=== PATIENT | female | born 1970 | race Caucasian/White ===

== ENCOUNTER → 2023-01-05 | Outpatient (CLI) | payer SELFPAY ==
[~2023-01-05] VITALS: Ht 167 cm; Wt 97.0 kg
[~2023-01-05] MED LIST: ASPI-1238 PO; ATOR20TA66 PO; CATHETER FLUSH 10 ML SYR IVP PRN; CLOP75TA28 PO; ISOS30TA82 PO; LEVO112C4 PO; PANT40TA52 PO; REGADENOSON 0.4 MG/5 ML SYR IV ONE
[2023-01-05 09:32] VITALS: BP 154/88
--- NOTE | 2023-01-05 12:12 | Cardiology Stress Test Report ---
Stress Test Report Date of Procedure/Referring: Date of Procedure: Jan 05, 2023 PCP No,Local Physician Admitting Physician Admitting Physician: Attending Physician: May Mcpherson Pa-C Baseline Heart Rate: 71 Baseline Blood Pressure: Blood Pressure Systolic: 154 Blood Pressure Diastolic: 88 Baseline Vitals Vital Signs Date Time Temp Pulse Resp B/P (MAP) Pulse Ox O2 Delivery O2 Flow Rate FiO2 01/05/23 09:32 71 154/88 (110) Baseline EKG: Baseline EKG: NSR Summary After explaining the procedure to the patient, she signed a consent and then brought to the stress nuclear laboratory. Patient received 0.4 mg Lexiscan for stress test, ECG, heart rate and blood pressure were monitored continuously. Resting and stress dose of radio tracer were injected, imaging was acquired and reviewed in short axis, horizontal long axis and vertical long axis views. TID: 1.03 SSS: 13 SDS: 11 EF: 69 Patient tolerated Lexiscan well Significant breast attenuation affecting the quality of the images, there is a reversible ischemia involving the whole anterior wall and anteroseptum and anterolateral wall Normal left ventricular size, ejection fraction 69% ANTONINO FREIRE MD Jan 05, 2023 12:12
== END ==
LOC: CARD 07:20
PROVIDERS: ATTEND Physician Assistant
DX: R07.9 Chest pain, unspecified (principal); R06.09 Other forms of dyspnea; R00.2 Palpitations; I50.9 Heart failure, unspecified
CPT/HCPCS: 78452; 93017; A9502; C8929; 93306

== ENCOUNTER 2023-01-14 13:00 | Day surgery (SDC) | payer SELFPAY ==
[~2023-01-14] VITALS: Ht 167.6 cm; Wt 97.0 kg
[2023-01-14] VITALS (14 sets, daily range): BP systolic 124–167; BP diastolic 68–101
--- NOTE | 2023-01-14 11:15 | Diagnostic Imaging Report ---
INDICATION: Shortness of breath. FINDINGS: The heart size is normal. The lungs are clear. There is no pleural effusion or pneumothorax. The mediastinum unremarkable. IMPRESSION: No acute cardiopulmonary abnormality. Dictated by: Dictated on workstation # [id number]
[2023-01-14 11:36] LABS: HEMATOCRIT 43 % (35-52); HEMOGLOBIN 14.7 g/dL (11.5-16.0); MEAN CORPUSCULAR HEMOGLOBIN 31 pg (25-34); MEAN CORPUSCULAR HGB CONC 34 g/dL (32-36); MEAN CORPUSCULAR VOLUME 92 fL (80-99); MEAN PLATELET VOLUME 10.2 fL (9.0-12.2); PLATELET COUNT 282 10^3/uL (130-400); WHITE BLOOD COUNT 6.8 10^3/uL (4.3-11.0)
[2023-01-14] MEDS: NS IV 1000 ML 1,000 ML IV SCH ×4 (11:36→23:30)
[2023-01-14 11:45] LABS: ALBUMIN 4.1 GM/DL (3.2-4.5); POTASSIUM 3.6 MMOL/L (3.6-5.0)
[2023-01-14 11:46] LABS: CALCIUM 9.4 MG/DL (8.5-10.1)
[2023-01-14 11:47] LABS: INR 0.9 (0.8-1.4); PROTHROMBIN TIME PATIENT 12.3 SEC (12.2-14.7)
[2023-01-14 11:48] LABS: TOTAL PROTEIN 7.3 GM/DL (6.4-8.2)
[2023-01-14 11:49] LABS: BILIRUBIN,TOTAL 0.5 MG/DL (0.1-1.0)
--- NOTE | 2023-01-14 11:49 | Cardiac Procedure Note-CS/ASA ---
Pre-Procedure Note Pre-Op Procedure Note Date of Available H&P: Jan 06, 2023 Date H&P Reviewed: Jan 14, 2023 Time H&P Reviewed: 11:49 History & Physical: H&P Reviewed, Patient Examed, No changes noted Pre-Operative Diagnosis: CAD Moderate Sedation PreProcedure Time 11:49 ASA Score 3 Airway Lungs Heart ASA score ASA 1: a normal healthy patient ASA 2: a patient with a mild systemic disease (mid diabetes, controlled hypertension, obesity ASA 3: a patient with a severe systemic disease that limits activity (angina, COPD, prior Myocardial infarction) ASA 4: a patient with an incapacitating disease that is a constant threat to life (CHF, renal failure) ASA 5: a moribund patient not expected to survive 24 hrs. (ruptured aneurysm) ASA 6: a declared brain- patient whose organs are being harvested. For emergent operations, add the letter E after the classification Mallampati Classification Grade 3 Sedation Plan Analgesia, Amnesia, Plan communicated to team members, Discussed options with patient/fam, Discussed risks with patient/fam The patient is an appropriate candidate to undergo the planned procedure, sedation, and anesthesia. The patient immediately re-assessed prior to indication. ANTONINO FREIRE MD Jan 14, 2023 11:49
[2023-01-14 11:51] LABS: CREATININE SERUM 0.75 MG/DL (0.60-1.30)
[2023-01-14 12:02] LABS: BACTERIA,URINE TRACE /HPF; BILIRUBIN,URINE NEGATIVE (NEGATIVE); CLARITY,URINE CLEAR; COLOR,URINE YELLOW; GLUCOSE, URINE (UA) NEGATIVE (NEGATIVE); KETONES,URINE NEGATIVE (NEGATIVE); LEUKOCYTE ESTERASE ,URINE NEGATIVE (NEGATIVE); NITRITE,URINE NEGATIVE (NEGATIVE); PH,URINE 5.5 (5-9); PROTEIN,URINE NEGATIVE (NEGATIVE); RBC,URINE 0-2 /HPF; SQUAMOUS EPITHELIAL CELL,UR 0-2 /HPF
[~2023-01-14 13:00] MED LIST changes: -ASPI-1238 PO; -ATOR20TA66 PO; -CATHETER FLUSH 10 ML SYR IVP PRN; -CLOP75TA28 PO; +HEParin (CATH LAB) 2,000 ML IV ONE; +HEParin 1000 UNIT/ML (10ML VIAL) FOR BOLUS ONE; -ISOS30TA82 PO; +LIDOCAINE 1% INJ 20 ML VIAL ONE; +MIDAZOLAM INJ 5 MG/5 ML VIAL ONE; +NS IV 1000 ML 1,000 ML ONE; -PANT40TA52 PO; -REGADENOSON 0.4 MG/5 ML SYR IV ONE; +diphenhydrAMINE INJ 50 MG/ML VIAL ONE; +fentaNYL INJECTION 100 MCG/2 ML VIAL ONE; +methylPREDNISolone INJ 125 MG VIAL ONE
[2023-01-14] MEDS ORDERED: NITRO DRIP 25000 MCG/D5W 250 ML IV ONE (13:02)
[2023-01-14] MEDS ORDERED: ASPIRIN 325 MG TABLET ONE (13:12)
[2023-01-14] MEDS ORDERED: CLOPIDOGREL 300 MG TABLET PO ONE (13:12)
--- NOTE | 2023-01-14 13:28 | Cardiac Cath Report ---
Cardiac Cath Report Physician (s)/Warehouse Operator (s) Physician ANTONINO FREIRE MD Pre-Procedure Diagnosis Pre-Procedure Diagnosis: CAD Post-Procedure Note Procedure Start Date: Jan 14, 2023 Name of Procedure: Left heart catheterization IFR to the LAD Stenting to the mid LAD Findings/Procedure Note PROCEDURE NOTE: 52-year-old lady with history of hypothyroidism, hyperlipidemia, has been having chest pain, had an abnormal stress test with anterior wall ischemia, scheduled for cardiac catheterization possible PTCA. After explaining the procedure to the patient, all pros and cons were explained, all questions were answered. The patient signed the consent and then she was placed in the cardiac catheterization laboratory. Groin was prepped in SL fashion local anesthesia was used. Sheath placed in the right femoral artery. Brie' right and left catheter were used to access the coronary system. Brie right was prolapsed to the left ventricular cavity, pressure was measured, pullback LV to aorta was done. Patient has 70% stenosis in the mid LAD. I advanced Brie left guide and IFR wire through the LAD and parked distally. IFR at baseline was 0.75. Proceeded with deployment of 2.5 x 23 mm Skypoint stent deployed to 2.71 mm, angiogram showed no residual stenosis, IFR post deployment was 0.91. At the end of the procedure the sheath was removed. Closure device was deployed FINDINGS: Hemodynamics LV 130/12, end-diastolic pressure of 12 Aorta 129/62 mean of 85 ANATOMY: Left Main is free of obstructive disease Left Anterior Descending has 70% mid LAD stenosis successful stent deployment using Skypoint 2.5 x 23 mm deployed under 12 danni up to 2.71 mm with 0% residual stenosis Left Circumflex is moderate in size with no obstructive disease Right Coronary Artery is dominant artery with no obstructive disease LV Gram was not done, pressure was measured PERCUTANEOUS INTERVENTION: Pre stenosis 70% Post Stenosis 0% Pre AKSHAT flow 3 Post AKSHAT flow 3 Dominance right coronary artery CONCLUSION: 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 Successful stenting using Skypoint 2.5 x 23 mm deployed up to 2.71 mm with 0% residual stenosis with IFR 0.91 post intervention Otherwise nonobstructive disease in the coronary system Normal left ventricular end-diastolic pressure DISCUSSION AND RECOMMENDATION: Patient was loaded with aspirin and Plavix Anesthesia Type: Conscious Sedation Estimated blood loss (mL): 15 ml Contrast Amount: 115 ml Total Radiation Dose: 798 mGy Post-Procedure Diagnosis Post-operative diagnosis: Chest pain Coronary artery disease Hypertension Hyperlipidemia ANTONINO FREIRE MD Jan 14, 2023 13:28
[2023-01-14] MEDS ORDERED: PATIENT MAY USE OWN MEDS, ALL PO SCH (13:30)
[2023-01-14] MEDS ORDERED: diphenhydrAMINE INJ 50 MG/ML VIAL ONE (13:31)
[2023-01-14] MEDS ORDERED: RT-IPRATROPIUM NEBS 0.5 MG/2.5 ML IH ONE (13:47)
[2023-01-14] MEDS ORDERED: LEVOTHYROXINE 112 MCG TABLET PO SCH (21:00)
[2023-01-14] MEDS ORDERED: ANTACID SUSPENSION 30 ML UDC PO ONE (21:00)
[2023-01-15 04:07] VITALS: BP 121/71
[2023-01-15 04:56] LABS: HEMATOCRIT 44 % (35-52); HEMOGLOBIN 14.9 g/dL (11.5-16.0); MEAN CORPUSCULAR HEMOGLOBIN 31 pg (25-34); MEAN CORPUSCULAR HGB CONC 34 g/dL (32-36); MEAN CORPUSCULAR VOLUME 91 fL (80-99); MEAN PLATELET VOLUME 10.9 fL (9.0-12.2); PLATELET COUNT 314 10^3/uL (130-400); WHITE BLOOD COUNT 14.3 10^3/uL (4.3-11.0)
[2023-01-15 05:23] LABS: CALCIUM 9.3 MG/DL (8.5-10.1)
[2023-01-15 05:27] LABS: CREATININE SERUM 0.74 MG/DL (0.60-1.30)
[2023-01-15] MEDS: NS IV 1000 ML 1,000 ML IV SCH (05:39)
[2023-01-15] MEDS ORDERED: ATOR20TA66 PO ×2 (06:47)
[2023-01-15] MEDS ORDERED: PANT40TA52 PO ×2 (06:47)
[2023-01-15] MEDS ORDERED: CLOP75TA28 PO ×2 (06:47)
[2023-01-15] MEDS ORDERED: ASPI-1238 PO ×2 (06:47)
--- NOTE | 2023-01-15 06:48 | Discharge Inst-Post CATH ---
Discharge Inst-CATH/EP Problems Reviewed?: Yes Post Cardiac Cath/EP D/C Inst Follow Up/Plan Appointment with Dr Pérez in 2 weeks <b>CARDIAC CATH/EP PROCEDURE DISCHARGE INSTRUCTIONS</b> ACTIVITY * Go Home directly and rest. * Limit activity of the leg (or wrist if it was used) for 7 days including aerobics, swimming, jogging, bicycling, etc. * Restrict stair-climbing for 7 days if possible, if not, climb up with your non-cath leg, then bring together on the same step. * Avoid lifting, pushing, pulling or excessive movement of the affected extremity for 7 days. * Customary sexual activity may be resumed after 2 days-use caution not to use a position that strains or causes pain to the affected extremity. * No driving for 24 hours. * NO SMOKING. * Avoid straining for bowel movements for 7 days. * Gentle walking on level ground is allowed. * Returning to work will depend on the type of procedure and the results. Your doctor will discuss this with you. CALL YOUR DOCTOR FOR ANY OF THE FOLLOWING: *If bleeding from the puncture site occurs- Apply gentle pressure to site with clean cloth and call your doctor or EMS. * If a knot or lump forms under the skin, increases in size, or causes pain. * If bruising appears to be worsening or moving further down your leg instead of disappearing. * Temperature above 101 F. CARE OF YOUR GROIN INCISION; * Bruising or purple discoloration of the skin near the puncture site is common. * You may shower only, no bathtub bathing for 5 days. Be careful to avoid slipping as your leg may feel stiff. * If a closure device was used on your femoral artery, please see the attached guide regarding care of the device and your leg. * Leave dressing on FOR 24 hours. CARE OF YOUR WRIST INCISION; * Bruising or purple discoloration of the skin near the puncture site is common. * You may shower. * DO NOT submerge wrist. * Leave dressing on FOR 24 hours. ANTONINO PÉREZ MD Jan 15, 2023 06:48
[2023-01-15 08:00] VITALS: BP 157/84
[2023-01-15] MEDS ORDERED: ISOS30TA82 PO ×2 (08:33)
--- NOTE | 2023-01-15 08:33 | Cardiology Progress Note ---
Subjective Date Seen by Provider: Jan 15, 2023 Time Seen by Provider: 08:31 Subjective/Events-last exam Patient was seen at bedside, laying down comfortably, groin is healing well. Reporting mild chest discomfort Objective-Cardiology Exam Last Set of Vital Signs Vital Signs 01/15/23 01/15/23 04:07 08:00 Temp 36.4 Pulse 86 Resp 21 B/P (MAP) 121/71 (88) Pulse Ox 98 O2 Delivery Nasal Cannula O2 Flow Rate 1.00 I&O Intake and Output 01/15/23 00:00 Intake Total 700 ml Output Total 1300 ml Balance -600 ml Intake Oral 700 ml Output Urine Total 1300 ml # Voids 1 General: Alert, Oriented X3, Cooperative HEENT: Atraumatic, PERRLA Neck: Supple, No JVD, No Thyromegaly Lungs: Clear to Auscultation, Normal Air Movement Heart: Regular Rate, Normal S1, Normal S2, No Murmurs Abdomen: Normal Bowel Sounds, Soft, No Tenderness, No Hepatosplenomegaly, No Masses Extremities: No Clubbing, No Cyanosis, No Edema, Normal Pulses, No Tenderness/Swelling Skin: No Rashes, No Breakdown, No Significant Lesion Neuro: Normal Gait, Normal Speech, Strength at 5/5 X4 Ext, Normal Tone, Sensation Intact Psych/Mental Status: Mental Status NL, Mood NL Results Lab Laboratory Tests 01/14/23 10:45 01/15/23 03:45 A/P-Cardiology Admission Diagnosis Chest pain Coronary artery disease Hyperlipidemia Leg pain Assessment/Plan Chest pain, coronary artery disease, starting isosorbide Coronary artery disease, status post stenting to the mid LAD with excellent results. Continue on aspirin and Plavix Hyperlipidemia, started on Lipitor Patient is reporting left leg pain for a while, reporting that it became better after the catheterization. Planning to evaluate GÓMEZ as an outpatient ANTONINO FREIRE MD Jan 15, 2023 08:33
[2023-01-15] MEDS ORDERED: ASPIRIN enteric coated 81MG TABLET PO SCH (09:00)
[2023-01-15] MEDS ORDERED: PANTOPRAZOLE 40 MG TABLET PO SCH (09:00)
[2023-01-15] MEDS ORDERED: CLOPIDOGREL 75 MG TABLET PO SCH (09:00)
== END 2023-01-15 09:20 | disposition home or self-care (01) ==
LOC: CATH 13:00 → ICU 13:36 → CATH 01-15 09:20
PROVIDERS: ATTEND Internal Medicine Cardiovascular Disease
DX: I25.10 Atherosclerotic heart disease of native coronary artery without angina pectoris (principal); I10 Essential (primary) hypertension; I65.23 Occlusion and stenosis of bilateral carotid arteries; R00.2 Palpitations; Z85.850 Personal history of malignant neoplasm of thyroid; Z87.891 Personal history of nicotine dependence; M79.605 Pain in left leg
CPT/HCPCS: 71045; 80048; 80053; 80061; 81000; 85027 ×2; 85347; 85610; 85730; 87081; 93005; 93458; 93571; 94640; C1760; C1769; C1874; C1887; C1894; C9600; 36415

== ENCOUNTER 2023-02-06 09:13 | Outpatient (RCR) | payer SELFPAY ==
[~2023-02-06 09:13] MED LIST changes: +ASPI-1238 PO; +ATOR20TA66 PO; +CLOP75TA28 PO; -HEParin (CATH LAB) 2,000 ML IV ONE; -HEParin 1000 UNIT/ML (10ML VIAL) FOR BOLUS ONE; +ISOS30TA82 PO; -LIDOCAINE 1% INJ 20 ML VIAL ONE; -MIDAZOLAM INJ 5 MG/5 ML VIAL ONE; -NS IV 1000 ML 1,000 ML ONE; +PANT40TA52 PO; -diphenhydrAMINE INJ 50 MG/ML VIAL ONE; -fentaNYL INJECTION 100 MCG/2 ML VIAL ONE; -methylPREDNISolone INJ 125 MG VIAL ONE
[2023-02-06 10:35] LABS: BASOPHILS # (AUTO) 0.1 10^3/uL (0.0-0.1); BASOPHILS % (AUTO) 1 % (0-10); EOSINOPHILS # (AUTO) 0.3 10^3/uL (0.0-0.3); EOSINOPHILS % (AUTO) 4 % (0-10); HEMATOCRIT 46 % (35-52); LYMPHOCYTES # (AUTO) 2.1 10^3/uL (1.0-4.0); LYMPHOCYTES % (AUTO) 27 % (12-44); MEAN CORPUSCULAR HEMOGLOBIN 30 pg (25-34); MEAN CORPUSCULAR HGB CONC 33 g/dL (32-36); MEAN CORPUSCULAR VOLUME 92 fL (80-99); MONOCYTES # (AUTO) 0.3 10^3/uL (0.0-1.0); MONOCYTES % (AUTO) 4 % (0-12); NEUTROPHILS # (AUTO) 4.8 10^3/uL (1.8-7.8); NEUTROPHILS % (AUTO) 64 % (42-75); PLATELET COUNT 374 10^3/uL (130-400); WHITE BLOOD COUNT 7.5 10^3/uL (4.3-11.0)
[2023-02-06 10:59] LABS: ALBUMIN 4.5 GM/DL (3.2-4.5); BILIRUBIN,TOTAL 0.5 MG/DL (0.1-1.0); CALCIUM 10.2 MG/DL (8.5-10.1); CREATININE SERUM 0.78 MG/DL (0.60-1.30); POTASSIUM 3.8 MMOL/L (3.6-5.0); TOTAL PROTEIN 7.9 GM/DL (6.4-8.2)
== END 2023-02-19 | disposition home or self-care (01) ==
LOC: ONC 09:13
PROVIDERS: ATTEND Internal Medicine Hematology & Oncology
DX: E05.00 Thyrotoxicosis with diffuse goiter without thyrotoxic crisis or storm (principal); K21.9 Gastro-esophageal reflux disease without esophagitis; I25.10 Atherosclerotic heart disease of native coronary artery without angina pectoris; Z85.850 Personal history of malignant neoplasm of thyroid
CPT/HCPCS: 80053; 84432; 84443; 85025; 86800